=== PATIENT | male | born 1995 | race Caucasian/White ===

== ENCOUNTER 2023-08-08 19:41 | Emergency (ER) | payer SELFPAY ==
[~2023-08-08] VITALS: Ht 175.2 cm; Wt 89.4 kg
[~2023-08-08 19:41] MED LIST: ALBUTEROL0.09 MG/A2 INH; BACTRIM DS 8001 TA1 PO; MOTRIN400 MG PO; NAPROSYN500 MG PO; NO DAILY MEDS; PREDNISONE20 MG PO; TYLENOL W/CODE480 ML PO
[2023-08-08] MEDS ORDERED: CEPHALEXIN500 M1 PO (21:20)
== END 2023-08-08 21:27 | disposition home or self-care (01) ==
LOC: ED 19:41
DX: S60.111A Contusion of right thumb with damage to nail, initial encounter (principal); I10 Essential (primary) hypertension; Z98.890 Other specified postprocedural states; W22.8XXA Striking against or struck by other objects, initial encounter; Y93.89 Activity, other specified; Y92.009 Unspecified place in unspecified non-institutional (private) residence as the place of occurrence of the external cause; Y99.8 Other external cause status

== ENCOUNTER 2024-09-28 19:54 | Emergency (ER) | payer BC ==
[~2024-09-28] VITALS: Ht 175.2 cm; Wt 83.9 kg
[~2024-09-28 19:54] MED LIST changes: +CEPHALEXIN500 M1 PO
[2024-09-28 20:46] LABS: BASO # 0.0 10*3/uL (0.0-0.1); BASO % 0.6 % (0.0-1.0); EOS # 0.0 10*3/uL (0.0-0.4); EOS % 0.3 % (1.0-4.0); MEAN CELL VOLUME 81.6 fl (80.0-94.0); MEAN CORPUSCULAR HGB 26.8 pg (27.0-31.0); MEAN PLATELET VOLUME 10.5 fl (9.6-12.3); MONO # 0.5 10*3/uL (0.1-1.0); MONO % 6.8 % (3.0-9.0); NEUT # 4.4 10*3/uL (2.3-7.9); NEUT % 62.4 % (47.0-73.0); NUCLEATED RED BLOOD CELL 0.0 % (0.0-0.0); NUCLEATED RED BLOOD CELL 0.0 10*3/uL (0.0-0.0); PLATELET COUNT AUTOMATED 226 10*3/uL (130-400); RED CELL DISTRI WIDTH 13.0 % (0-14.5)
[2024-09-28 21:16] LABS: BUN 22 mg/dl (9-23)
== END 2024-09-28 22:13 | disposition home or self-care (01) ==
LOC: ED 19:54
PROVIDERS: Nurse Practitioner Family
DX: R07.89 Other chest pain (principal); R06.02 Shortness of breath; R42 Dizziness and giddiness; R00.2 Palpitations

== ENCOUNTER 2024-09-29 02:13 | Emergency (ER) | payer BC ==
[2024-09-29] MEDS ORDERED: LORazepam 1 MG TAB PO ONE (02:30)
== END 2024-09-29 03:48 | disposition home or self-care (01) ==
LOC: ED 02:13
DX: R00.2 Palpitations (principal); I10 Essential (primary) hypertension; Z79.899 Other long term (current) drug therapy; Z98.890 Other specified postprocedural states